=== PATIENT | male | born 1990 | race Caucasian/White ===

== ENCOUNTER 2023-07-10 14:39 | Outpatient (OUT) | payer OTHER, SELFPAY ==
[2023-07-10 15:26] LABS: Basophils Absolute Auto 0.1 10^3/uL (0.0-0.1); Basophils Percent Auto 0.6 % (0.2-2.0); Eosinophils Absolute Auto 0.1 10^3/uL (0.0-0.7); Eosinophils Percent Auto 1.1 % (0.9-7.0); Hematocrit 37.1 % (42.0-54.0); Hemoglobin 12.4 g/dL (14.0-18.0); Immature Granulocytes Abs Auto 0.07 10^3/uL (0.00-0.03); Immature Granulocytes Pct Auto 0.5 % (0.0-0.5); Lymphocytes Absolute Auto 1.8 10^3/uL (1.2-3.8); Lymphocytes Percent Auto 13.9 % (20.5-60.0); Mean Corpuscular HGB Conc 33.4 g/dL (29.9-35.2); Mean Corpuscular Volume 86.9 fL (80.0-94.0); Mean Platelet Volume 11.5 fL (9.5-13.5); Monocytes Absolute Auto 0.7 10^3/uL (0.3-0.8); Monocytes Percent Auto 5.7 % (1.7-12.0); Neutrophils Absolute Auto 10.1 10^3/uL (1.4-6.5); Neutrophils Percent Auto 78.2 % (43.0-75.0); Platelet Count 387 10^3/uL (150-450); Red Blood Count 4.27 10^6/uL (4.70-6.10); Red Cell Distribution Width 19.9 % (11.0-15.0); White Blood Count 12.9 10^3/uL (4.0-11.0)
[2023-07-10 15:33] LABS: Ammonia <10 umol/L (11-32)
[2023-07-10 15:42] LABS: Estimated Average Glucose 100 mg/dL; Glycohemoglobin A1C 5.1 % (4.5-6.2)
[2023-07-10 15:43] LABS: INR 0.94; Partial Thromboplastin Time 32.3 sec (22.3-36.2)
[2023-07-10 16:03] LABS: Alanine Aminotransferase 32 U/L (16-63); Albumin Globulin Ratio 0.6; Albumin Level 3.1 g/dL (3.4-5.0); Alkaline Phosphatase 374 U/L (46-116); Amylase 37 U/L (25-115); Anion Gap 13.9; Aspartate Amino Transferase 30 U/L (15-37); BUN Creatinine Ratio 13.3; Bilirubin Total 17.3 mg/dL (0.2-1.0); Calcium 9.5 mg/dL (8.5-10.1); Carbon Dioxide 28.9 mmol/L (21.0-32.0); Chloride 100 mmol/L (98-107); Cholesterol 179 mg/dL (<=200); Estimated GFR (African America >60 (>=60); Estimated GFR (Non-African Ame >60 (>=60); Free T3 2.44 pg/mL (2.18-3.98); Globulin 5.3 g/dL; Glucose 120 mg/dL (74-106); HDL Cholesterol 11 mg/dL (40-60); Potassium 3.8 mmol/L (3.5-5.1); Sodium 139 mmol/L (136-145); Thyroid Stimulating Hormone 0.762 uIU/mL (0.358-3.740); Total Protein 8.4 g/dL (6.4-8.2); Triglycerides 317 mg/dL (<=150); VLDL CHOLESTEROL 63.4 mg/dL
== END 2023-07-10 14:40 | disposition home or self-care (01) ==
LOC: LAB 14:39
PROVIDERS: PCP Family Medicine; Visit Provider Family Medicine
DX: R17 Unspecified jaundice (principal); E78.5 Hyperlipidemia, unspecified; R73.09 Other abnormal glucose
CPT/HCPCS: 36415; 80053; 80061; 82140; 82150; 83036; 83690; 84436; 84443; 84481; 85025; 85610; 85730; 87522

== ENCOUNTER 2023-07-14 09:56 | Outpatient (OUT) | payer OTHER, SELFPAY ==
--- NOTE | 2023-07-14 10:02 | US_ITS ---
The [address] [address] Patient Name: LORI LEVY MRN: [id number] date: 1990 Sex: M Assigned Patient Location: US Current Patient Location: US Accession/Order Number: [id number] Exam Date: 07/14/2023 10:03 Report Date: 07/14/2023 13:07 At the request of: MATEUS SOMMERS Procedure: US right upper quadrant EXAMINATION: US right upper quadrant HISTORY: R17 Unspecified jaundice , pain, nausea, vomiting COMPARISON: CT abdomen pelvis 02/17/2020 TECHNIQUE: Transabdominal evaluation of the right upper quadrant. FINDINGS: LIVER: Normal size and echotexture. Slightly prominent portal triad; nonspecific. Color Doppler demonstrates patent hepatic veins. PORTAL VEIN: Duplex Doppler demonstrates normal hepatopetal flow pattern with flow velocity averaging 30 cm/s. GALLBLADDER: Multiple large stones within the gallbladder. No gallbladder wall thickening or free fluid. Negative sonographic Lorenzo's sign. BILIARY: No abnormal dilation or stones. Common bile duct diameter is within normal limits. PANCREASE: No visible mass, abnormal atrophy, or duct dilation. KIDNEY: No hydronephrosis. No visible mass or stones. Size: 10.0 x 6.0 x 4.6 cm US/US right upper quadrant IMPRESSION: 1. Cholelithiasis without evidence of acute cholecystitis. 2. No evidence of portal vein thrombosis or hypertension. Electronically authenticated by: MAGDY FELIZ Date: 07/14/2023 13:07
== END 2023-07-14 09:57 | disposition home or self-care (01) ==
LOC: US 09:56
PROVIDERS: PCP Family Medicine; Visit Provider Family Medicine
DX: R17 Unspecified jaundice (principal); K80.20 Calculus of gallbladder without cholecystitis without obstruction
CPT/HCPCS: 76705

== ENCOUNTER 2023-08-05 12:42 | Outpatient (OUT) | payer OTHER, SELFPAY ==
--- NOTE | 2023-08-05 12:46 | MR_ITS ---
[address] [address] Patient Name: LORI LEVY MRN: [id number] date: 1990 Sex: M Assigned Patient Location: MRI Current Patient Location: Accession/Order Number: [id number] Exam Date: 08/05/2023 12:55 Report Date: 08/06/2023 07:06 At the request of: MATEUS SOMMERS Procedure: MR abdomen wo con EXAMINATION: MR abdomen wo con HISTORY: Calculus of gallbladder without cholecystitis K80.20 COMPARISON: Ultrasound right upper quadrant 07/14/2023, CT abdomen pelvis 02/17/2020 TECHNIQUE: A comprehensive examination was performed utilizing a variety of imaging planes and imaging parameters to optimize visualization of suspected pathology. Magnetic resonance cholangiopancreatography was also performed. FINDINGS: LIVER: Normal. No enlargement, atrophy, abnormal density, or significant focal lesion. BILIARY: Abnormal dilation of common bile duct, 15 mm, with a 9 mm stone within the distal duct near the ampulla of Vater. Gallbladder is filled with numerous 5-10 mm stones. No appreciable wall thickening or surrounding free fluid. PANCREAS: No lesion, fluid collection, ductal dilatation, or atrophy. SPLEEN: No enlargement or focal lesion. KIDNEYS: No mass or obstruction. ADRENALS: No mass or enlargement. AORTA/VASCULAR: No aneurysm or dissection. RETROPERITONEUM: No mass or adenopathy. BOWEL/MESENTERY: No visible mass, obstruction, or bowel wall thickening. ABDOMINAL WALL: No mass or hernia. BONES: No bony lesion or fracture. LUNG BASES: No visible pleural disease. Lung bases not well assessed with MRI. OTHER: Negative. MR/MR abdomen wo con IMPRESSION: 1. Partially obstructing 9 mm stone within distal common bile duct. 2. Cholelithiasis. Gallbladder is filled with stones. No appreciable acute inflammatory changes. 3. No pancreatic mass or abnormal dilation of the pancreatic duct. Electronically authenticated by: MAGDY FELIZ Date: 08/06/2023 07:06
== END 2023-08-05 12:43 | disposition home or self-care (01) ==
LOC: MRI 12:42
PROVIDERS: PCP Family Medicine; Visit Provider Family Medicine
DX: K80.20 Calculus of gallbladder without cholecystitis without obstruction (principal)
CPT/HCPCS: 74181

== ENCOUNTER 2023-09-25 12:48 | Outpatient (OUT) | payer OTHER, SELFPAY ==
--- OUTSIDE RECORDS SUMMARY | 2023-09-25 13:12 | XMS_ITS | CCD ---
Author Organization [facility] Informat ion Partnership [facility] Care Team Providers Care Monorail Charger Operator Name Role Phone CHRISTIAN SUN Attending Unavailable ELÍAS HURT Attending Unavailable YASH BACON Primary Care Unavailable JOHNATHAN ROQUE I Admitting Unavailable JOHNATHAN ROQUE I Attending Unavailable MATEUS HELMS Primary Care Unavailable MATEUS HELMS Primary Care Unavailable Mateus Helms Primary Care Provider Unavailable Primary Care Provider Chacho HELMS ., DR IGNACIO Primary Care Unavailable PAY ., DR CLAIRE Admitting Unavailable PAY ., DR CLAIRE Attending Unavailable PAY ., DR CLAIRE Consulting Unavailable GRECHNY ., TOÑO PINTO Consulting MATEUS Fierro Referring Unavailable JYOTI LI Attending Unavailable JOYTI LI Admitting Unavailable JYOTI LI Referring Unavailable BAO HE Attending Unavailable Allergies Allergy Classification Reported Allergen(s) Allergy Type Date of Onset Reaction(s) Facility (1 source) Amoxicillin / Clavulanate Drug Allergy [facility] Repository (1 source) AMOXICILLIN-POT CLAVULANATE; Translations: [AMOXICILLIN-POT CLAVULANATE] Propensity to adverse reactions to drug (disorder) 4 [facility] Repository Medications Current Medications Medication Drug Class(es) Dates Sig (Normalized) Sig (Original) calcium chloride 0.0014 meq/ml / potassium chloride 0.004 meq/ml / sodium chloride 0.103 meq/ml / sodium lactate 0.028 meq/ml injectable solution (2 sources) Start: 12-24-2018 lactated ringers infusion doxycycline hyclate 100 mg oral tablet (1 source) Tetracycline-class Drug Start: 07-15-2019 End: 07-25-2019 take 1 tablet by mouth twice daily doxycycline hyclate (VIBRA-TABS) 100 MG tablet Take 1 tablet by mouth 2 times daily for 10 days 20 tablet 0 07/15/2019 07/25/2019 Active mupirocin 0.02 mg/mg topical ointment (1 source) RNA Synthetase Inhibitor Antibacterial Start: 07-15-2019 End: 07-22-2019 mupirocin (BACTROBAN) 2 % ointment Apply topically 3 times daily. 1 Tube 0 07/15/2019 07/22/2019 Active 3 ml sodium chloride 9 mg/ml injection (2 sources) Start: 12-24-2018 sodium chloride flush 0.9 % injection 10 mL sulfamethoxazole 800 mg / trimethoprim 160 mg oral tablet (1 source) Dihydrofolate Reductase Inhibitor Antibacterial, Sulfonamide Antimicrobial Start: 11-28-2018 End: 12-08-2018 take 1 tablet by mouth twice daily sulfamethoxazole -trimethoprim (BACTRIM DS) 800-160 MG per tablet Take 1 tablet by mouth 2 times daily for 10 days 20 tablet 0 11/28/2018 12/08/2018 Active Completed/Discontinued Medications Medication Drug Class(es) Dates Sig (Normalized) Sig (Original) acetaminophen 325 mg oral tablet (4 sources) Start: 04-29-2018 End: 12-23-2018 take 1 tablet by mouth every six hours as needed for pain acetaminophen (TYLENOL) 325 MG tablet Take 1 tablet by mouth every 6 hours as needed for Pain 120 tablet 3 04/29/2018 12/23/2018 Discontinued (Therapy completed) End: 07-15-2019 take 2 tablets by mouth every six hours as needed for pain acetaminophen (TYLENOL) 325 MG tablet Take 650 mg by mouth every 6 hours as needed for Pain 0 07/15/2019 Discontinued (Therapy completed) acetaminophen 325 mg / HYDROcodone bitartrate 5 mg oral tablet (1 source) Opioid Agonist Start: 12-24-2018 End: 12-24-2018 HYDROcodone-acetaminophen (NORCO) 5-325 MG per tablet 1 tablet Start: 12-24-2018 End: 12-24-2018 HYDROcodone-acetaminophen (N ORCO) 5-325 MG per tablet 1 tablet benzocaine 15 mg / menthol 2.6 mg oral lozenge (2 sources) Standardized Chemical Allergen Start: 04-29-2018 End: 12-23-2018 Benzocaine-Menthol (CEPACOL EXTRA STRENGTH) 15-2.6 MG LOZG lozenge Take 1 lozenge by mouth every 2 hours as needed for Sore Throat 24 lozenge 0 04/29/2018 12/23/2018 Discontinued (Therapy completed) ceFAZolin (ANCEF) 2 g in dextrose 5 % 100 mL IVPB (1 source) Start: 12-24-2018 End: 12-24-2018 ceFAZolin (ANCEF) 2 g in dextrose 5 % 100 mL IVPB fluticasone propionate 0.05 mg/actuat metered dose nasal spray (2 sources) Corticosteroid Start: 04-29-2018 End: 12-23-2018 fluticasone (FLONASE) 50 MCG/ACT nasal spray 1 spray by Nasal route 2 times daily 1 Bottle 0 04/29/2018 12/23/2018 Discontinued (Therapy completed) gabapentin 100 mg oral capsule (2 sources) Anti-epileptic Agent Start: 03-27-2018 End: 12-23-2018 take 1 capsule by mouth three times daily gabapentin (NEURONTIN) 100 MG capsule Indications: Neuropathy, arm, right Take 1 capsule by mouth 3 times daily for 30 days.. 90 capsule 0 03/27/2018 12/23/2018 Discontinued (Therapy completed) ibuprofen 800 mg oral tablet (3 sources) Nonsteroidal Anti-inflammatory Drug Start: 04-29-2018 End: 12-23-2018 take 1 tablet by mouth every eight hours as needed for pain ibuprofen (ADVIL;MOTRIN) 800 MG tablet Take 1 tablet by mouth every 8 hours as needed for Pain 30 tablet 0 04/29/2018 12/23/2018 Discontinued (Therapy completed) take 1 tablet by nati th every six hours as needed for pain ibuprofen (ADVIL;MOTRIN) 200 MG tablet T nafisa 200 mg by mouth every 6 hours as needed for Pain 0 Active Mirtazapine (3 sources) End: 07-15-2019 Mirtazapine (REMERON PO) David e by mouth nightly 0 07/15/2019 Discontinued (Therapy completed) Mirtazapine (REM ANDREA PO) Take by mouth nightly 0 Active Mirtazapine (REM ANDREA PO) Take by mouth daily 0 Active Problems Active Problems Problem Classification Problem Date Documented Date Episodic/Chronic Biliary tract disease (4 sources) Calculus of gallbladder without cholecystitis without obstruction; Translations: [Calculus of bile duct without cholangitis or cholecystitis without obstruction] Onset: 08-07-2023 Episodic Coagulation and hemorrhagic disorders (2 sources) Spontaneous ecchymoses; Translations: [Spontaneous ecchymoses] Onset: 08-27-2023 Episodic E Codes: Natural/environment (1 source) Exposure to other specified factors, initial encounter; Translations: [EXPOSURE OTHER SPEC FACTORS INITIAL] Onset: 08-02-2022 Episodic Immunizations and screening for infectious disease (1 source) Encounter for immunization; Translations: [ENCOUNTER FOR IMMUNIZATION] Onset: 08-02-2022 Episodic Influenza (1 source) Influenza due to unidentified influenza virus with other respiratory manifestations; Translations: [Influenza due to unidentified influenza virus with other respiratory manifestations] Onset: 04-29-2018 Episodic Other eye disorders (4 sources) Ocular pain, right eye; Translations: [OCULAR PAIN RIGHT EYE] Onset: 07-31-2022 Episodic Other liver diseases (2 sources) Unspecified jaundice; Translations: [Unspecified jaundice] Onset: 08-07-2023 Episodic Other liver diseases (2 sources) Abnormal levels of other serum enzymes; Translations: [Abnormal levels of other serum enzymes] Onset: 08-07-2023 Episodic Other skin disorders (1 source) Folliculitis; Translations: [Folliculitis] Episodic Substance-related disorders (1 source) Nicotine dependence, cigarettes, uncomplicated; Translations: [NICOTINE DEPEND CIGARETTES UNCOMP] Onset: 08-02-2022 Chronic Superficial injury; contusion (1 source) Injury of conjunctiva and corneal abrasion without foreign body, right eye, initial encounter; Translations: [INJ CONJ AND CA W/O FB RT EYE INITIAL] Onset: 08-02-2022 Episodic Past or Other Problems Problem Classification Problem Date Documented Da te Episodic/Chronic Skin and subcutaneous tissue infections (2 sources) Cutaneous abscess, unspecified; Translations: [Abscess of scalp] Onset: 02-24-2018 Episodic Results Test Name Value Interpretation Reference Range Facility Consulton 08-27-2023 Consult [id number] Anastasia Levy in 1990 M Date Provider Department Center 08/27/2023 Caleb-BAO HE [facility] [address] Family History Problem Relation Age of Onset Diabetes Mother Diabetes Father Family Status - Relation Status Age at Mother Father Level of Service:41587 NE OFFICE/OUTPATIENT ESTABLISHED LOW MDM 20 MIN Reason for Visit and Comments: Consult [484] - Lori is here today for a consult visit for gallstones. Normal [facility] Telephoneon 08-12-2023 Telephone [id number] Anastasia Levy in 1990 M Date Provider Department Center 08/12/2023 JAISON [facility] YOUSIF No family history on file Normal [facility] HPon 08-07-2023 HP History Of Present Illness Lori Levy is a 33 y.o. male presenting with obstructive jaundice secondary to choledocholithiasis noted on MRCP. The patient reports a history of pruritus, dark color urine and light-colored stool for the last 3 to 4 months. He reports intermittent upper abdominal pain more after meals. He denies significant weight loss. He is scheduled to have an ERCP today for common bile duct stone removal. Past Medical History He has a past medical history of Nerve damage and Opiate addiction ([facility]). Surgical History He has no past surgical history on file. Social History He has no history on file for tobacco use, alcohol use, and drug use. Family History No family history on file. Allergies Augmentin [amoxicillin-pot clavulanate] Medications (Not in a hospital admission) Review of Systems Constitutional: Negative. Respiratory: Negative. Cardiovascular: Negative. Gastrointestinal: Positive for abdominal pain. Jaundice, dark urine and light-colored stools associated with the pruritus Genitourinary: Negative. Skin: Negative. Last Recorded Vitals Visit Vitals Pulse 63 Temp 36.5 ???C (97.7 ???F) (Temporal) Resp 16 Ht 1.854 m (6' 1 ) Wt 83.2 kg (183 lb 6.8 oz) SpO2 100% BMI 24.20 kg/m??? Smoking Status Never Assessed BSA 2.07 m??? Physical Exam HEENT: Anicteric sclera, conjunctiva Chest: Unremarkable Heart: Unremarkable Abdomen: Soft, no tenderness Lower extremities: No edema Relevant Lab Results No results found for: NA , K , CL , CO2 , BUN , CREATININE , GLUCOSE , CALCIUM , ANIONGAP , EGFR , BCR Relevant Imaging Results No image results found. Assessment/Plan Lori Levy is a 33 y.o. male presenting with obstructive jaundice secondary to choledocholithiasis noted on MRCP. The patient reports a history of pruritus, dark color urine and light-colored stool for the last 3 to 4 months. He reports intermittent upper abdominal pain more after meals. He denies significant weight loss. He is scheduled to have an ERCP today for common bile duct stone removal. Normal [facility] NURSNOTEon 08-07-2023 NURSNOTE industrial maintenance tech depar jennifer with [employer] equipment. Normal [facility] NURSNOTE Maintain a Clear Liq uid Diet (see handout) for the rest of today. May advance diet as tolerated (no nausea) for breakfast tomorrow. May resume home medications. Normal [facility] NURSNOTE industrial maintenance tech arrived. [facility] Findings: Commo n Bile Duct (CBD) stone removed Normal [facility] industrial maintenance tech departed. Normal [facility] industrial maintenance tech arriv ed with [employer] equipment for set up. Normal [facility] POCT GLUCOSE METER UNSOLICIT ED RESULTSon 08-07-2023 Glucose [Mass/Vol] 104 mg/dL Normal 70-105 [facility] Comment on above: Order Comment: Waive d Testing in the ED is performed under the ED CLIA certificate #[id number]. Result Comment: pbar retcorson Performed By: #### L [id number] ####[facility] ([facility])[address] [place] [address] Orders Onlyon 08-06-2023 Orders Only [id number] Anastasia Levy in 1990 M Date Provider Department Center 08/06/2023 [facility] YOUSIF No family history on file Normal [facility] Physician Referralon 024 Physician Referral [id number] F Normal [facility] Vital Signs Date Time Vital Sign Value Performing Clinician Donnell garcia 07-15-2019 15:36-0400 Body Temperature 98.29 [degF] [facility] [place] 07-15-2019 15:36-0400 BP Diastolic 83 mm[Hg] [facility] [place] [facility] [place] 07-15-2019 15:36-0400 BP Systolic 144 mm[Hg] Mateus Helms [facility] [place] [facility] [place] 07-15-2019 15:36-0400 Pulse (Heart Rate) 61 /min Mateus Helms [facility] [place] 07-15-2019 15:36-0400 Pulse Oximetry 100 % Mateus Helms [facility] [place] [facility] [place] 07-15-2019 15:36-0400 Respiratory Rate 16 /min Mateus Helms [facility] 12-24-2018 13:38-0400 BP Diastolic 70 mm[Hg] [facility] [place] 12-24-2018 13:38-0400 BP Systolic 119 mm[Hg] [facility] [place] 12-24-2018 13:38-0400 Pulse (Heart Rate) 50 /min [facility] [place] 12-24-2018 13:38-0400 Respiratory Rate 20 /[facility] [place] 12-24-2018 13:08-0400 Body Temperature 97 [degF] [facility] [place] 12-24-2018 13:08-0400 Pulse Oximetry 100 % [facility] [place] 12-24-2018 09:27-0400 BMI (Body Mass Index) 28.76 kg/m2 Johnathan Roque [facility], [place] 12-24-2018 09:27-0400 Body weight 98.88 kg Johnathan Roque [facility] [place] [facility] [place] 12-24-2018 09:27-0400 Height 185.4 cm Johnathan Roque [facility] [place] [facility] [place] 11-28-2018 11:38-0400 BMI (Body Mass Index) 25.68 kg/m2 [facility] 11-28-2018 11:38-0400 Body Temperature 97.9 [degF] [facility] 11-28-2018 11:38-0400 Body weight 90.72 kg [facility] [place] [facility] [place] 11-28-2018 11:38-0400 BP Diastolic 80 mm[Hg] [facility] [place] [facility] [place] 11-28-2018 11:38-0400 BP Systolic 135 mm[Hg] [facility] MAMIE 11-28-2018 11:38-0400 Height 188 cm [place] 11-28-2018 11:38-0400 Pulse (Heart Rate) 66 /min [facility] MAMIE 11-28-2018 11:38-0400 Pulse Oximetry 100 % [place] 11-28-2018 11:38-0400 Respiratory Rate 18 /min [facility] Encounters Encounter Date Encounter Type Care Provider Facility Start: 08-27-2023 End: 08-27-2023 ambulatory BAO HE [facility] Start: 08-07-2023 End: 08-07-2023 ambulatory JYOTI LI [facility] Start: 08-07-2023 End: 08-07-2023 ambulatory MATEUS [facility] Start: 07-31-2022 End: 07-31-[address] MATEUS HELMS . Facility: Start: 07-15-2019 End: 07-15-2019 Emergency department patient visit [facility] Start: 07-15-2019 End: 07-15-2019 Emergency department patient visit [facility] ED Comment on above: Folliculitis (Primar y Dx) Start: 12-24-2018 End: 12-24-2018 Patient encounter procedure JOHNATHAN ROQUE [facility] Start: 12-24-2018 End: 12-24-2018 Subsequent hospital visit by physician Johnathan Roque Work Phone: [facility] Start: 11-28-2018 End: 11-28-2018 [facility] Start: 11-28-2018 End: 11-28-2018 Emergency department patient visit [facility] ED Comment on above: Scalp abscess (Prima ry Dx) Start: 04-29-2018 End: 04-29-2018 Emergency department patient visit ELÍAS HURT [facility] Start: 02-24-2018 End: 02-24-2018 Emergency department patient visit CHRISTIAN SUN [facility] Procedures Date Procedure Procedure Detail Performing Clinician Start: 12-24-2018 DISCHARGE PATIENT JOVI BACON Start: 12-24-2018 VOID LOCKER ATTENDANT TO OR RAVINDER BACON Start: 12-24-2018 INITIATE OXYGEN THER APY PROTOCOL YASH BACON Start: 12-24-2018 INSERT PERIPHERAL IV RA JONG BACON Start: 12-24-2018 VITAL SIGNS YASH NIELSEN Plan of Treatment Date Care Activity Detail Author Start: 05-18-2021 DTaP/Tdap/Td vaccine (2 - Td) DTaP/Tdap/Td vaccine (2 - Td) [place] Start: 12-14-2019 Influenza vaccination Flu vacc ine (Season Ended) [place] Start: 12-13-2018 Influenza vaccination Flu vaccine (# 1) [place] Start: 2004 HIV screen HIV screen [place], [place] Start: 2002 Varicella Vaccine (1 of 2 - 13+ 2-dose series) Varicella Vaccine (1 of 2 - 13+ 2-dose series) [place] Start: 1995 Pneumococcal 0-64 ye ars Vaccine (1 of 1 - PPSV23) Pneumococcal 0-64 years Vaccine (1 of 1 - PPSV23) [place] Start: 1990 Varicella vaccine (1 of 2 - 2-dose childhood series) Varicella vaccine (1 of 2 - 2-dose childhood series) [place] Initiate Oxygen Ther apy Protocol Initiate Oxygen Therapy Protocol Respiratory Care Routine Daily until discontinued starting 12/25/2018 [place] Comment on above: Daily until disconti nued starting 12/25/2018 Immunizations Immunization Date Immunization Notes Care Provider Norm elizalde 02-27-2018 influenza, injectabl e, quadrivalent, contains preservative [place] 05-18-2011 tetanus toxoid, redu annia diphtheria toxoid, and acellular pertussis vaccine, adsorbed [place] Payers Date Payer Category Payer Unknown [id number] 2018 Unknown [employer] xxxxxxxxxxx 2018-Present [phone] [address] [place] [address] xxxxxxxxxxx [id number] 2017 Medicaid [id number] 1990 Unknown [id number] 1989 Unknown [id number] 1989 Unknown [id number] 1989 Unknown [id number] 1989 Unknown [id number] 1989 Unknown [id number] 1959 Unknown [id number] Social History Date Type Detail Facility Start: 11-28-2018 End: 07-15-2019 Tobacco smoking status NHIS Current every day smoker [place] History of tobacco use Cigarette Smoker M [place] Start: 11-28-2018 End: 07-15-2019 Cigarettes smoked current (pack per day) - Reported [place] Start: 07-15-2019 Alcohol intake Ex-drinker (finding) [place] Start: 12-23-2018 Alcohol Comment social [place], [place] Sex Assigned At Not on file [place] Exposure to SARS-CoV -2 (event) Unable to assess [place] Start: 11-28-2018 End: 12-24-2018 Alcohol intake Not Currently [place] Clinical Note 09-18-2023 Note Date & Type Note Facility 09-18-2023 Note PT TO CONTACT MATTHEW ODEN SUBSCRIBER TO FORMULATE A PLAN TO CONTINUE OR HOLD Medications to take AM day of procedure with sips water only: GABAPENTIN Medication Hold instructions: NSAIDs (Motrin,Aleve): 5 days prior to procedure Vitamins/Supplements: 5 days prior to procedure IF YOU ARE GOING HOME AFTER YOUR SURGERY OR PROCEDURE, FOR YOUR SAFETY, YOUR SURGERY WILL BE CANCELLED IF BOTH OF THE FOLLOWING ARE NOT AVAILABLE: An adult race car driver over the age of 18, that can receive information about your care after surgery, and drive you home. A responsible adult to stay with you for 24 hours in case of an emergency. Can be same as above. The highest risk of complications is within the first 24 hours after sedation/anesthesia. Nothing to eat or drink after midnight the night before surgery. This includes gum, candy, mints, and lozenges. No alcohol, marijuana, or tobacco products including vaping for 24 hours. Please brush your teeth; don't swallow the toothpaste or water. If you use dentures, wear them but do not use paste. Please leave any other removable dental hardware at home. Do not put in contact lenses. Do not wear perfume, make-up, nail czech, or lotions on the day of your surgery or procedure. Follow skin-prep/wipe instructions as below if required. Bring with you: *Insurance card *Photo ID *Medication list *Co-pay for visit/prescriptions If applicable: *Rescue inhalers *Green bracelet from lab *CPAP or BiPAP machine, if staying overnight *Any braces, splints, or equipment ordered preoperatively *Remote controls for implanted devices Leave at home: *Purse/Wallet/Ortiz- unless needed for co-pay *Cell phone (can leave with family/friend or place in locker if needed) *Jewelry (including piercings and wedding bands) *If not possible, ask the person who is waiting with you to keep them Children under the age of 12 will not be allowed into patient care areas. We will call you between 3pm and 4pm the day before your surgery to give you an arrival time. If you do not receive this call, have any questions, or need to make any changes, please call [phone]. Notify your surgeon if you develop any illness such as a cold, cough, fever, sore throat or vomiting between now and your surgery. Thank you for entrusting us with your care. [facility] Surgical Services Team [facility] Progress note 08-27-2023 Note Date & Type Note Facility 08-27-2023 Note Subjective Patient ID: Lori Levy is a 33 y.o. male who presents for Consult (Lori is here today for a consult visit for gallstones. ). HPI Lori Levy is a 33 year old male presenting for consultation of gallstones. Patient reports colicky pain. He underwent ERCP with stent placement, lithotripsy and stone removal on 08/07/[address] Mateus Helms. Patient reported that prior to gallstone removal, he experienced 4 months of jaundice. Family history of cholecystectomy in mother and sister. No further concerns. Review of Systems Constitutional: Negative. HENT: Negative. Eyes: Negative. Respiratory: Negative. Cardiovascular: Negative. Gastrointestinal: Positive for nausea. Endocrine: Negative. Genitourinary: Negative. Musculoskeletal: Negative. Skin: Negative. Allergic/Immunologic: Negative. Neurological: Negative. Hematological: Negative. Psychiatric/Behavioral: Negative. Objective Visit Vitals BP 132/79 (BP Location: Right arm, Patient Position: Sitting) Pulse (!) 47 Temp 36.4 ???C (97.6 ???F) (Oral) Physical Exam Eyes: General: No scleral icterus. Pulmonary: Effort: Pulmonary effort is normal. Skin: Coloration: Skin is not jaundiced. Neurological: General: No focal deficit present. Mental Status: He is alert and oriented to person, place, and time. Psychiatric: Mood and Affect: Mood normal. Assessment/Plan Lori Levy is a 33 year old male presenting for consultation of gallstones. He underwent ERCP with stent placement, lithotripsy and stone removal on 08/07/23. 1) Patient was offered robot-assisted cholecystectomy and patient agreed/consented. 2) Follow up post-operatively Diagnosis Plan 1. Gallstones Full Code Case Request Operating Room: CHOLECYSTECTOMY, ROBOT-ASSISTED Basic metabolic panel CBC and differential Protime-INR No Antibiotic Required clindamycin in D5W (Cleocin) IVPB 900 mg Case Request Operating Room: CHOLECYSTECTOMY, ROBOT-ASSISTED 2. Easy bruising Protime-INR Orders Placed This Encounter Procedures Basic metabolic panel Standing Status: Future Standing Expiration Date: 08/26/2024 Order Specific Question: Release to Patient Answer: Immediately CBC and differential Standing Status: Future Standing Expiration Date: 08/26/2024 Order Specific Question: Release to Patient Answer: Immediately Protime-INR Standing Status: Future Standing Expiration Date: 08/26/2024 Order Specific Question: Release to Patient Answer: Immediately Reymundo Al, MS3 [facility] 08/26/23 No results found for this or any previous visit (from the past 36 hour(s)). No follow-ups on file. [facility] Progress note 08-27-2023 Note Date & Type Note Facility 08-27-2023 Note Subjective Patient ID: Lori Levy is a 33 y.o. male who presents for Consult (Lori is here today for a consult visit for gallstones. ). HPI Review of Systems Constitutional: Negative. HENT: Negative. Eyes: Negative. Respiratory: Negative. Cardiovascular: Negative. Gastrointestinal: Positive for nausea. Endocrine: Negative. Genitourinary: Negative. Musculoskeletal: Negative. Skin: Negative. Allergic/Immunologic: Negative. Neurological: Negative. Hematological: Negative. Psychiatric/Behavioral: Negative. Objective Visit Vitals BP 132/79 (BP Location: Right arm, Patient Position: Sitting) Pulse (!) 47 Temp 36.4 ???C (97.6 ???F) (Oral) Physical Exam Assessment/Plan No diagnosis found. No orders of the defined types were placed in this encounter. No results found for this or any previous visit (from the past 36 hour(s)). No follow-ups on file. [facility] Clinical Note 08-12-2023 Note Date & Type Note Facility 08-12-2023 Note ERCP procedure note from 08-07-23 faxed to referring office of Dr. Mateus Helms at [phone] [facility] Clinical Note 08-07-2023 Note Date & Type Note Facility 08-07-2023 Note Patient: Lori Mcguire er Procedure Summary Date: 08/07/23 Room / Location: [facility] Endoscopy Anesthesia Start: 1244 Anesthesia Stop: 1354 Procedure: ENDOSCOPIC RETROGRADE CHOLANGIOPANCREATOGRAPHY Diagnosis: Jaundice Common bile duct calculi Elevated liver enzymes Scheduled Providers: Gianni Guzman MD; LORNA Dangelo; Jyoti Li MD Responsible Provider: Mal Marti MD Anesthesia Type: general ASA Status: 2 Anesthesia Type: general Vitals Value Taken Time BP 123/49 08/07/23 1349 Temp 36.2 ???C (97.2 ???F) 04/25/24 1349 Pulse 72 08/07/23 1349 Resp 10 08/07/23 1349 SpO2 100 % 08/07/23 1349 Anesthesia Post Evaluation Patient location during evaluation: PACU Patient participation: complete - patient participated Level of consciousness: awake Pain score: 1 Pain management: adequate Airway patency: patent Cardiovascular status: acceptable Respiratory status: acceptable Patient is hemodynamically stable and is able to be discharged from PACU per anesthesia protocol. No notable events documented. [facility] Clinical Note 08-07-2023 Note Date & Type Note Facility 08-07-2023 Note Radiology notified b y phone that procedure is complete. [facility] Procedure note 08-07-2023 Note Date & Type Note Facility 08-07-2023 Note Airway Date/Time: 08/07/2023 12:55 PM Urgency: elective General Information and Staff Patient location during procedure: OR Anesthesiologist: Gianni Guzman MD Resident/VENDING MACHINE ASSEMBLER/CAA: LORNA Dangelo Performed: other anesthesia staff Indications and Patient Condition Indications for airway management: anesthesia Spontaneous Ventilation: absent Sedation level: deep Preoxygenated: yes Mask difficulty assessment: 1 - vent by mask Final Airway Details Final airway type: endotracheal airway Successful airway: ETT Cuffed: yes Successful intubation technique: video laryngoscopy Facilitating devices/methods: intubating stylet Endotracheal tube insertion site: oral Blade: Glez Blade size: #3 ETT size (mm): 7.5 Cormack-Lehane Classification: grade I - full view of glottis Placement verified by: chest auscultation and capnometry Measured from: lips ETT to lips (cm): 23 Number of attempts at approach: 1 Number of other approaches attempted: 0 Additional Comments A/w by Woodrow LAURA [facility] Clinical Note 08-07-2023 Note Date & Type Note Facility 08-07-2023 Note Radiology notified b y phone that procedure is ready for C-Arm equipment set up. [facility] Clinical Note 08-07-2023 Note Date & Type Note Facility 08-07-2023 Note Patient: Lori Mcguire er Procedure Summary Date: 08/07/23 Room / Location: [facility] [place] Endoscopy Anesthesia Start: 1244 Anesthesia Stop: 1354 Procedure: ENDOSCOPIC RETROGRADE CHOLANGIOPANCREATOGRAPHY Diagnosis: Jaundice Common bile duct calculi Elevated liver enzymes Scheduled Providers: Gianni Guzman MD; LORNA Dangelo; Jyoti Li MD Responsible Provider: Mal Marti MD Anesthesia Type: general ASA Status: 2 Anesthesia Post Transport Note Transport to: PACU O2 Route: room air Patient Monitor: direct observation Transport: uneventful Patient condition is: stable [facility] Clinical Note 08-07-2023 Note Date & Type Note Facility 08-07-2023 Note Patient: Lori Mcguire er Procedure Information Date/Time: 08/07/23 1230 Scheduled providers: Gianni Guzman MD; LORNA Dangelo; Jyoti Li MD Procedure: ENDOSCOPIC RETROGRADE CHOLANGIOPANCREATOGRAPHY Location: [facility] Endoscopy Relevant Problems No relevant active problems Clinical information reviewed: Allergies Meds Med Hx Surg Hx Fam Hx Soc Hx Physical Exam Airway Mallampati: II TM distance: >3 FB Neck ROM: full Cardiovascular Rhythm: regular Rate: normal Dental (+) upper dentures, lower dentures Pulmonary Breath sounds clear to auscultation Abdominal - normal exam Anesthesia Plan ASA 2 general Patient was not previously instructed to abstain from smoking on day of procedure. intravenous induction Postoperative administration of opioids is intended. Anesthetic plan and risks discussed with patient. Use of blood products discussed with who consented to blood products. Plan discussed with LORNA. Additional Equipment Requests [facility] Summary Purpose Family History No Family History Records FoundNo Family History Records FoundNo Family History Records FoundNo Family History Records FoundNo Family History Records Found Advance Directives No Advanced Directives Records FoundDocuments on File Type Date Recorded Patient Nursing Home Director Expl anation Advance Directives and Living Will Power of Nail Puller Documents on File Type Date Recorded Patient Nursing Home Director Expl anation Advance Directives and Living Will Power of Nail Puller Discharge Instructions * Instructions* Nargis Suero PA-C - 07/15/2019 Call to arrange follow-up with your surgeon and primary care provider. There should be a nurse at your facility have them recheck this area. * Attachments The following attachments cannot be sent through Care Everywhere. * Folliculitis (Turkmen) documented in this encounter* Instructions* Unique Sun RN - 12/24/2018 Lori had scalp infection at 3 different areas drained under anesthesia today. Per postsurgical anesthesia protocols, he did receive one done of norco postop . He is not going home with any narcotics as they are not needed. Tylenol or motrin over the counter for pain as directed on bottle. Ice pack to scalp as needed. No heating pad. Okay to remove the elastic head cap upon arriving back to [facility]. EXPECT BLOODY DRAINAGE FROM THE INCISIONS OVER THE NEXT COUPLE OF DAYS. Place towel on pillow or chair as needed. Ok to shower in 24 hours. Ok to gently shampoo the area. There are small skin conrad- THEY MAY FALL OUT AND THAT IS OK- if they do, then the incisions willclose up on their own over the next week and they will continue to drain and that is OK Ok to wear a clean baseball cap if you want. Recommend putting a clean gauze or kleenex or barrier between scalp and hat. SAME DAY SURGERY DISCHARGE INSTRUCTIONS 1. Do not drive or operate hazardous machinery for 24 hours. 2. Do not make important personal or business decisions for 24 hours. 3. Do not drink alcoholic beverages for 24 hours. 4. Do not smoke tobacco products for 24 hours. 5. Eat light foods (Jell-O, soups, etc....) and drink plenty of fluids (water, Sprite, etc...) up to 8 glasses per day, as you can tolerate. 6. If your bandages become soaked with bright red blood, place another dressing pad over your bandages. (DO NOT remove original bandage.) Call your surgeon for further instructions. A small amount ofbright red blood is to be expected. 7. Limit your activities for 24 hours. Do not engage in heavy work until your surgeon gives you permission. 8. Report the following signs or any questions regarding your physical condition to your surgeon immediately: Excessive swelling of, or around the wound area. Redness. Temperature of 100 degrees (F) or above. Excessive pain. 9. Call your surgeon for any questions regarding your surgery. 10. Call for an appointment to see your surgeon in ___1 week for suture removal . documented in this encounter* Attachments The following attachments cannot be sent through Care Everywhere. * Abscess: Skin (Turkmen) documented in this encounter Assessments Diagnosis Folliculitis Other specified disease of hair and hair follicles Diagnosis Scalp abscess- Primary Cellulitis and abscess of other specified site History of Present Illness * Unique Sun RN - 12/24/2018 1:45 PM EDT Discharge instructions reviewed with patient and father. Both verbalize understanding and deny questions. Discharge Criteria Inpatients must meet Criteria 1 through 7. All other patients are either YES or N/A. If a NO is chosen then Anesthesia or Surgeon must be notified. 1. Minimum 30 minutes after last dose of sedative medication, minimum 120 minutes after last dose of reversal agent. Yes 2. Systolic BP stable within 20 mmHg for 30 minutes & systolic BP between 90 & 180 or within 10 mmHg of baseline. Yes 3. Pulse between 60 and 100 or within 10 bpm of baseline. Yes 4. Spontaneous respiratory rate >/= 10 per minute. Yes 5. SaO2 >/= 95 or >/= baseline. Yes 6. Able to cough and swallow or return to baseline function. Yes 7. Alert and oriented or return to baseline mental status. Yes 8. Demonstrates controlled, coordinated movements, ambulates with steady gait, or return to baseline activity function. Yes 9. Minimal or no pain or nausea, or at a level tolerable and acceptable to patient. Yes 10. Takes and retains oral fluids as allowed. Yes 11. Procedural / perioperative site stable. Minimal or no bleeding. Yes 12. If GI endoscopy procedure, minimal or no abdominal distention or passing flatus. N/A 13. Written discharge instructions and emergency telephone number provided. Yes 14. Accompanied by a responsible adult. Yes Adult patient discharged from facility without responsible person meets above criteria plus the following: a) remains awake without stimulus for 30 minutes b) oriented appropriate for age c) all vital signs stable d) no significant risk of losing protective reflexes e) able to maintain pre-procedure mobility without assistance f) no nausea or dizziness g) transportation arrangements that do not require patient to operate motor Vehicle. N/A * Unique Sun RN - 12/24/2018 1:10 PM EDT Patient states he has 6/10 pain. When questioned further patient states he would rate his pain 5/10. SAMARIA Marcial notified. Order received. * Armando Rankin RN - 12/24/2018 1:07 PM EDT Report to RICHARD Steel. * Darlene Rodriguez RN - 12/23/2018 2:57 PM EDT Patient's dad Ulysses instructed on the pre-operative, intra-operative, and post- operative process. Patient's surgery arrival time to the hospital and surgery start time confirmed for the day of surgery. Patient's dad instructed on pt's NPO status. Medication instructions and Pre operative instructionsheet reviewed over the phone. Also called to Akil to inform pt he must be NPO day of surgery and to avoid smoking day of surgery. documented in this encounter Additional Source Comments (unrecognized sect ion and content) No Status Records FoundNo Status Records FoundNo Status Records FoundNo Status Records FoundNo Status Records Found INFORMATION SOURCE (unrecogn ized section and content) DATE CREATED AUTHOR 05/06/2018 [facility] DATE CREATED AUTHOR AUTHOR'S ORGANIZ ATION 07/18/2019 [facility] DATE CREATED AUTHOR AUTHOR'S ORGANIZ ATION 08/03/2022 [facility] DATE CREATED AUTHOR AUTHOR'S ORGANIZ ATION 07/21/2023 [facility] DATE CREATED AUTHOR AUTHOR'S ORGANIZ ATION 09/19/2023 [facility] Reason for Visit (unrecogniz ed section and content) Reason Comments Abscess on head currently at [facility] Status Reason Specialty Diagnoses / Procedures Referre d By Contact Referred To Contact Diagnoses Cutaneous abscess of head (any part, except face) INFECTED SCALP ABCESS X3 Procedures NE DRAIN SKIN ABSCESS SIMPLE FACIAL INCISION AND DRAINAGE-SCALP X3 Johnathan Roque DO [address] [place] [address] [facility] Reason Comments Abscess scalp, chronic x 7-8 months per pt FOR RECORDS PERTAINING TO PATIENTS WHO ARE OR HAVE BEEN ENROLLED IN A CHEMICAL DEPENDENCY/SUBSTANCEABUSE PROGRAM, SOME INFORMATION MAY BE OMITTED. This clinical summary was aggregated from multiple sources. Caution should be exercised in using it in the provision of clinical care. This summary normalizes information from multiple sources, and as a consequence, information in this document may materially change the coding, format and clinical context of patient data. In addition, data may be omitted in some cases. CLINICAL DECISIONS SHOULD BE BASED ON THE PRIMARY CLINICAL RECORDS. [facility] [employer], [facility]. provides no warranty or guarantee of the accuracy or completeness of information in this document.
[2023-09-25 14:01] LABS: Basophils Absolute Auto 0.1 10^3/uL (0.0-0.1); Basophils Percent Auto 0.7 % (0.2-2.0); Eosinophils Absolute Auto 0.3 10^3/uL (0.0-0.7); Eosinophils Percent Auto 3.2 % (0.9-7.0); Hematocrit 38.5 % (42.0-54.0); Hemoglobin 12.7 g/dL (14.0-18.0); Immature Granulocytes Abs Auto 0.01 10^3/uL (0.00-0.03); Immature Granulocytes Pct Auto 0.1 % (0.0-0.5); Lymphocytes Absolute Auto 2.2 10^3/uL (1.2-3.8); Lymphocytes Percent Auto 24.7 % (20.5-60.0); Mean Corpuscular Hemoglobin 29.5 pg (25.9-34.0); Mean Corpuscular Volume 89.3 fL (80.0-94.0); Mean Platelet Volume 10.8 fL (9.5-13.5); Monocytes Percent Auto 11.1 % (1.7-12.0); Neutrophils Absolute Auto 5.4 10^3/uL (1.4-6.5); Neutrophils Percent Auto 60.2 % (43.0-75.0); Platelet Count 292 10^3/uL (150-450); Red Blood Count 4.31 10^6/uL (4.70-6.10); Red Cell Distribution Width 13.5 % (11.0-15.0)
[2023-09-25 14:13] LABS: INR 1.03; Prothrombin Time 10.9 sec (9.0-11.6)
[2023-09-25 14:21] LABS: Anion Gap 11.2; BUN Creatinine Ratio 9.5; Calcium 9.3 mg/dL (8.5-10.1); Carbon Dioxide 29.5 mmol/L (21.0-32.0); Chloride 104 mmol/L (98-107); Estimated GFR (African America >60 (>=60); Estimated GFR (Non-African Ame >60 (>=60); Glucose 107 mg/dL (74-106); Potassium 3.7 mmol/L (3.5-5.1); Sodium 141 mmol/L (136-145)
== END 2023-09-25 12:49 | disposition home or self-care (01) ==
LOC: LAB 12:51
PROVIDERS: PCP Family Medicine
DX: K80.20 Calculus of gallbladder without cholecystitis without obstruction (principal); R23.3 Spontaneous ecchymoses
CPT/HCPCS: 36415; 80048; 85025; 85610